=== PATIENT | male | born 1995 | race Two or more races ===

== ENCOUNTER 2021-08-14 13:43 | Emergency (ER) | payer SELFPAY ==
[~2021-08-14] VITALS: Ht 172.7 cm; Wt 111.0 kg
[2021-08-14] MEDS ORDERED: ONDANSETRON HCL 4MG/2ML INJ IV STA (14:01)
[2021-08-14] MEDS ORDERED: SODIUM CHLORIDE 0.9% 1,000 ML IV ONE (14:15)
[2021-08-14 17:51] VITALS: BP 110/71
== END 2021-08-14 17:53 | disposition home or self-care (01) ==
LOC: ER 13:57
DX: F10.129 Alcohol abuse with intoxication, unspecified (principal); E86.0 Dehydration; Y90.9 Presence of alcohol in blood, level not specified
CPT/HCPCS: 96361; 96374; 99283; J2405; J7030